=== PATIENT | female | born 1985 | race Caucasian/White ===

== ENCOUNTER 2018-08-27 00:44 | Emergency (ER) ==
[2018-08-27 00:51] VITALS: BP 125/82; TEMP 98.5; BMI 24.3
[2018-08-27 01:15] LABS: URINE PREGNANCY TEST NEGATIVE (NEGATIVE)
[2018-08-27] MEDS ORDERED: ZOFRAN ODT PO STA (01:39)
[2018-08-27] MEDS ORDERED: NORCO 7.5-325 PO STA (01:39)
--- NOTE | 2018-08-27 01:55 | CT ---
EXAM: CT abdomen pelvis without intravenous contrast 08/27/2018. Sagittal and coronal reformatted i mages obtained HISTORY: Flank pain. COMPARISON: None. FINDINGS: The liver shows no acute abnormality. Gallbladder has been removed. The adrenal glands and kidneys show no acute abnormality. Limited characterization of solid organ pa thology due to the lack of intravenous contrast. No kidney stones or hydronephrosis. The spleen and pancreas show no acute abnormality. No bowel obstruction. Unremarkable urinary bladder. No free air or free fluid. Appendix not visualized. No acute osseous abnormality. IMPRESSION: 1. Bibasilar atelectasis. 2. Status post cholecystectomy 3. No urinary or bowel obstruction. 4. No acute inflammatory process identified within the limitation of a noncontrast enhanced examinat ion.
--- NOTE | 2018-08-27 02:22 | ED.PDOC ---
General ED Provider: Dr. ANGIE HENDERSON-ER Chief Complaint: Urinary Problem Stated Complaint: my back hurts and im sure i have a uti Time Seen by Physician: 00:50 Mode of Arrival: Walk-In Information Source: Patient Exam Limitations: No limitations Nursing and Triage Documentation Reviewed and Agree: Yes Does patient meet sepsis criteria?: No System Inflammatory Response Syndrome: Not Applicable Sepsis Protocol: For patient's 13 years and over: Temp is 96.8 and below OR 101 and greater Pulse >90 BPM Resp >20/minute Acutely Altered Mental Status Are patient's symptoms suggestive of a new infection, such as: -Pneumonia -Skin, Soft Tissue -Endocarditis -UTI -Bone, Joint Infection -Implantable Device -Acute Abdominal Infection -Wound Infection -Meningitis -Blood Stream Catheter Infection -Unknown Complaint Exam - UTI Female Complaint/Exam Patient Complains of: Reports: Painful urination Symptoms Are: Still present Initial Severity: Mild Current Severity: Mild Location of Pain: Reports: Right, Left, Flank Associated Signs and Symptoms: Reports: Flank pain. Denies: Fever, Chills CVA Tenderness: Yes Suprapubic Tenderness: No Review of Systems - Review Of Systems Constitutional: Reports: No symptoms Eyes: Reports: No symptoms Ears, Nose, Mouth, Throat: Reports: No symptoms Respiratory: Reports: No symptoms Cardiac: Reports: No symptoms GI: Reports: No symptoms : Reports: Dysuria, Flank pain Musculoskeletal: Reports: Back pain Skin: Reports: No symptoms Neurological: Reports: No symptoms Endocrine: Reports: No symptoms Hematologic/Lymphatic: Reports: No symptoms All Other Systems: Reviewed and Negative Past Medical History - Past Medical History Previously Healthy: Yes Endocrine: Reports: Unknown Cardiovascular: Reports: Unknown Respiratory: Reports: Unknown Hematological: Reports: Unknown Gastrointestinal: Reports: Unknown Genitourinary: Reports: Unknown Neuro/Psych: Reports: Unknown Musculoskeletal: Reports: Unknown Cancer: Reports: Unknown Last Menstrual Period: current - Surgical History General Surgical History: Reports: Unknown - Family History Family History: Reports: Unknown - Social History Smoking Status: Never smoker Hx Substance Use: No Alcohol Screening: None - Immunizations Tetanus Shot up to Date: Yes Physical Exam - Physical Exam Appearance: Well-appearing Pain Distress: Mild Eyes: ERIC ENT: Ears normal, Nose normal, Oropharynx normal Neck: Supple Respiratory: Airway patent, Breath sounds clear, Breath sounds equal, Respirations nonlabored Cardiovascular: RRR, Pulses normal, No rub, No murmur GI/: Soft Musculoskeletal: Normal strength, ROM intact, No edema, No calf tenderness Skin: Warm Neurological: Sensation intact, Motor intact, Reflexes intact, Cranial nerves intact, Alert, Oriented Psychiatric: Affect appropriate Interpretation - Radiology Interpretation Radiology Interpretation By: Radiologist Radiology Results: Negative Exam Interpreted: CT Scan Critical Care Note - Critical Care Note Total Time (mins): 0 Course - Course Hematology/Chemistry: 08/27/18 01:05 08/27/18 01:05 Orders, Labs, Meds: Lab Review 08/27/18 08/27/18 08/27/18 01:00 01:00 01:05 WBC 7.97 RBC 3.82 L Hgb 12.2 Hct 36.1 L MCV 94.5 MCH 31.9 H MCHC 33.8 RDW Coeff of Rafael 11.4 L Plt Count 320 Immature Gran % (Auto) 1.1 Neut % (Auto) 48.7 Lymph % (Auto) 37.6 [place] % (Auto) 9.0 Eos % (Auto) 3.0 Baso % (Auto) 0.6 Immature Gran # (Auto) 0.1 Neut # (Auto) 3.9 Lymph # (Auto) 3.0 [place] # (Auto) 0.7 Eos # (Auto) 0.2 Baso # (Auto) 0.1 Sodium Potassium Chloride Carbon Dioxide Anion Gap BUN Creatinine Estimated GFR (MDRD) BUN/Creatinine Ratio Glucose Calcium Total Bilirubin AST ALT Alkaline Phosphatase Total Protein Albumin Globulin Albumin/Globulin Ratio Amylase Lipase Urine Color Yellow Urine Clarity Clear Urine pH 7.5 Ur Specific [place] 1.015 Urine Protein Negative Urine Glucose (UA) Negative Urine Ketones Negative Urine Blood Negative Urine Nitrite Negative Urine Bilirubin Negative Urine Urobilinogen 0.2 Ur Leukocyte Esterase 1+ Urine Microscopic WBC 2-5 Ur Squamous Epith Cells 0-2 Urine Bacteria 1+ Urine Test Negative 08/27/18 01:05 WBC RBC Hgb Hct MCV MCH MCHC RDW Coeff of Rafael Plt Count Immature Gran % (Auto) Neut % (Auto) Lymph % (Auto) [place] % (Auto) Eos % (Auto) Baso % (Auto) Immature Gran # (Auto) Neut # (Auto) Lymph # (Auto) [place] # (Auto) Eos # (Auto) Baso # (Auto) Sodium 136.1 Potassium 4.11 Chloride 104.2 Carbon Dioxide 28.2 Anion Gap 7.81 BUN 14.3 Creatinine 0.79 Estimated GFR (MDRD) 84.00 BUN/Creatinine Ratio 18.10 Glucose 83.4 Calcium 9.19 Total Bilirubin 0.27 AST 28.3 ALT 16.6 Alkaline Phosphatase 47.3 Total Protein 7.78 Albumin 4.64 Globulin 3.14 Albumin/Globulin Ratio 1.47 Amylase 83.4 Lipase 99.2 Urine Color Urine Clarity Urine pH Ur Specific [place] Urine Protein Urine Glucose (UA) Urine Ketones Urine Blood Urine Nitrite Urine Bilirubin Urine Urobilinogen Ur Leukocyte Esterase Urine Microscopic WBC Ur Squamous Epith Cells Urine Bacteria Urine Test Orders Category Date Time Status AMYLASE Stat LAB 08/27/18 01:05 Completed CBC W/ AUTO DIFF Stat LAB 08/27/18 01:05 Completed COMPREHENSIVE METABOLIC PANEL Stat LAB 08/27/18 01:05 Completed LIPASE Stat LAB 08/27/18 01:05 Completed URINALYSIS C & S IF INDICATED Stat LAB 08/27/18 01:00 Completed URINE CULTURE Stat LAB 08/27/18 01:20 Received URINE Stat LAB 08/27/18 01:00 Completed Hydrocodone Bit/Acetaminophen [[place] 7.5-325] MEDS 08/27/18 01:39 Discontinued 1 tab PO ONCE STA Ondansetron [Zofran Odt] MEDS 08/27/18 01:39 Discontinued 4 mg PO ONCE STA CT ABD/PEL WO RENAL STONE PROT Stat RADS 08/27/18 01:01 Completed Medications Discontinued Medications Generic Name Dose Route Start Last Admin Trade Name Freq PRN Reason Stop Dose Admin Hydrocodone Bitart/Acetaminophen 1 tab 08/27/18 01:39 08/27/18 01:48 [place] 7.5-325 PO 08/27/18 01:40 1 tab ONCE STA Administration Ondansetron HCl 4 mg 08/27/18 01:39 08/27/18 01:49 Zofran Odt PO 08/27/18 01:40 4 mg ONCE STA Administration Vital Signs: Temp Pulse Resp BP Pulse Ox 08/27/18 00:44 98.5 F 93 H 16 125/82 97 Departure - Departure Time of Disposition: 02:22 Disposition: HOME SELF-CARE Discharge Problem: Urinary tract infectious disease Instructions: Urinary Tract Infection in Women (ED) Condition: Good Pt referred to PMD for follow-up: Yes IPMP verified?: No Additional Instructions: cipro 500mg bid x 7 days--pyridium 200mg tid with food for pain #6--f/u with pcp --zofran 4mg q 4hrs prn nausea #4 Allergies/Adverse Reactions: Allergies diazepam [From Valium] Adverse Reaction (Verified 08/27/18 00:50) latex Adverse Reaction (Verified 08/27/18 00:50) Home Medications: Ambulatory Orders Cyclobenzaprine HCl [Flexeril] 10 mg PO TID 08/27/18 Gabapentin [Neurontin] 600 mg PO DAILY 08/27/18 Ibuprofen 800 mg PO PRN PRN 08/27/18 Loratadine [Claritin] 10 mg PO DAILY 08/27/18 Montelukast Sodium [Singulair] 10 mg PO DAILY 08/27/18 Disposition Discussed With: Patient, Family
== END 2018-08-27 02:35 | disposition home or self-care (01) ==
LOC: ED 00:44
DX: N39.0 Urinary tract infection, site not specified (principal)
CPT/HCPCS: 36415; 74176; 80053; 81001; 81025; 82150; 83690; 85025; 87086; 87186; 99283

== ENCOUNTER 2018-09-04 09:40 | Outpatient (CLI) | payer OTHER | END 2018-09-04 09:41 | disposition home or self-care (01) | LOC: RHC-LAB 09:40 | PROVIDERS: ATTEND Nurse Practitioner Family | DX: R05 Cough (principal); J02.9 Acute pharyngitis, unspecified | CPT/HCPCS: 87502; 87651 ==

== ENCOUNTER 2018-09-10 16:43 | Emergency (ER) ==
[2018-09-10 16:51] VITALS: BP 135/88; TEMP 99.9; BMI 27.1
[2018-09-10 17:58] LABS: URINE PREGNANCY TEST NEGATIVE (NEGATIVE)
--- NOTE | 2018-09-10 18:20 | ED.PDOC ---
General ED Provider: Dr. ISATU [place] Chief Complaint: Respiratory Complaint Stated Complaint: FLU LIKE SYMPTOMS NOT IMPROVED AFTER ANTIBIOTIC TREATMENT Time Seen by Physician: 17:00 (SEEN WITH ILIANA AND NURSE AT ALL TIMES HAS HAD A FULL COURSE OF AUGMENTIN) Mode of Arrival: Walk-In Information Source: Patient Exam Limitations: No limitations Nursing and Triage Documentation Reviewed and Agree: Yes Does patient meet sepsis criteria?: No System Inflammatory Response Syndrome: Not Applicable Sepsis Protocol: For patient's 13 years and over: Temp is 96.8 and below OR 101 and greater Pulse >90 BPM Resp >20/minute Acutely Altered Mental Status Are patient's symptoms suggestive of a new infection, such as: -Pneumonia -Skin, Soft Tissue -Endocarditis -UTI -Bone, Joint Infection -Implantable Device -Acute Abdominal Infection -Wound Infection -Meningitis -Blood Stream Catheter Infection -Unknown Respiratory Complaint Exam - Respiratory Complaint/Exam Onset/Duration: 10 DAYS Symptoms Are: Still present Timing: Intermittent Initial Severity: Mild Current Severity: None Location: Nose, Throat, Chest Character: Reports: Non-productive cough, Dry cough Aggravating: Reports: URI Alleviating: Reports: None Associated Signs and Symptoms: Reports: Chills, URI, Nasal congestion. Denies: Rapid breathing, Dyspnea, Fever, Chest pain, Pleuritic chest pain, Wheezing, Hemoptysis, Dizziness, Calf pain, Calf swelling, Edema, Hoarseness, Sinus discomfort, Vomiting, Sore throat, Weight loss, Decreased oral intake, Increased thirst, Increased appetite, Increased urination Related History: Reports: Similar episode (DOES NOT SMOKE ) History of Healthcare-Acquired Pneumonia: No Related Surgical History: Reports: None Pulmonary Embolism Risk Factors: None Cardiac Risk Factors: Reports: None Pseudomonas Risk Factors: Reports: None Tuberculosis Risk Factors: Reports: None Status Asthmaticus Risk Factors: Reports: None Home Oxygen Use: No Recent Stress Test: No Recent Echo/LV Function: No Current Antibiotic Use: No Current Asthma Medication Use: No Respiratory Distress: None Inadequate Respiratory Effort: No Dysphagia Present: No Stridor Present: No JVD Present: No Accessory Muscle Use: No Retractions: Not Present Diminished Breath Sounds: No Sinus Tenderness: None Grunting Respirations: No Kussmaul Respirations: No Differential Diagnoses: Bronchitis, Influenza Review of Systems - Review Of Systems Constitutional: Reports: Chills, Malaise Eyes: Reports: No symptoms Ears, Nose, Mouth, Throat: Reports: No symptoms Respiratory: Reports: Cough Cardiac: Reports: No symptoms GI: Reports: No symptoms : Reports: No symptoms Musculoskeletal: Reports: No symptoms Skin: Reports: No symptoms Neurological: Reports: No symptoms Endocrine: Reports: No symptoms Hematologic/Lymphatic: Reports: No symptoms All Other Systems: Reviewed and Negative Past Medical History - Past Medical History Previously Healthy: Yes Endocrine: Reports: Unknown Cardiovascular: Reports: Unknown Respiratory: Reports: Unknown Hematological: Reports: Unknown Gastrointestinal: Reports: Unknown Genitourinary: Reports: Unknown Neuro/Psych: Reports: Unknown Musculoskeletal: Reports: Unknown Cancer: Reports: Unknown Last Menstrual Period: just ended - Surgical History General Surgical History: Reports: Unknown - Family History Family History: Reports: Unknown - Social History Smoking Status: Never smoker Hx Substance Use: No Alcohol Screening: None Physical Exam - Physical Exam Appearance: Well-appearing, No pain distress, Well-nourished Eyes: ERIC, EOMI, Conjunctiva clear ENT: Ears normal, Nose normal, Oropharynx normal Respiratory: Rhonchi Cardiovascular: RRR, Pulses normal, No rub, No murmur GI/: Soft, Nontender, No masses, Bowel sounds normal, No Organomegaly Musculoskeletal: Normal strength, ROM intact, No edema, No calf tenderness Skin: Warm, Dry, Normal color Neurological: Sensation intact, Motor intact, Reflexes intact, Cranial nerves intact, Alert, Oriented Psychiatric: Affect appropriate, Mood appropriate Critical Care Note - Critical Care Note Total Time (mins): 0 Course - Course Hematology/Chemistry: 09/10/18 17:26 09/10/18 17:26 Orders, Labs, Meds: Lab Review 09/10/18 09/10/18 09/10/18 17:26 17:26 17:46 WBC 7.12 RBC 3.69 L Hgb 11.8 L Hct 34.1 L MCV 92.4 MCH 32.0 H MCHC 34.6 RDW Coeff of Rafael 11.5 L Plt Count 287 Immature Gran % (Auto) 0.1 Neut % (Auto) 63.9 Lymph % (Auto) 25.6 [place] % (Auto) 8.0 Eos % (Auto) 2.1 Baso % (Auto) 0.3 Immature Gran # (Auto) 0.0 Neut # (Auto) 4.6 Lymph # (Auto) 1.8 [place] # (Auto) 0.6 Eos # (Auto) 0.2 Baso # (Auto) 0.0 Sodium 141.1 Potassium 3.72 Chloride 107.9 H Carbon Dioxide 24.5 Anion Gap 12.42 BUN 12.5 Creatinine 0.57 L Estimated GFR (MDRD) 121.00 BUN/Creatinine Ratio 21.92 Glucose 95.8 Calcium 8.99 Total Bilirubin 0.34 AST 32.1 ALT 16.8 Alkaline Phosphatase 53.9 Total Protein 7.26 Albumin 4.32 Globulin 2.94 Albumin/Globulin Ratio 1.46 Urine Test Influ A Molecular Assay Negative by naat Influ B Molecular Assay Negative by naat RSV Antigen 09/10/18 09/10/18 17:46 17:46 WBC RBC Hgb Hct MCV MCH MCHC RDW Coeff of Rafael Plt Count Immature Gran % (Auto) Neut % (Auto) Lymph % (Auto) [place] % (Auto) Eos % (Auto) Baso % (Auto) Immature Gran # (Auto) Neut # (Auto) Lymph # (Auto) [place] # (Auto) Eos # (Auto) Baso # (Auto) Sodium Potassium Chloride Carbon Dioxide Anion Gap BUN Creatinine Estimated GFR (MDRD) BUN/Creatinine Ratio Glucose Calcium Total Bilirubin AST ALT Alkaline Phosphatase Total Protein Albumin Globulin Albumin/Globulin Ratio Urine Test Negative Influ A Molecular Assay Influ B Molecular Assay RSV Antigen Negative by naat Orders Category Date Time Status CBC W/ AUTO DIFF Stat LAB 09/10/18 17:26 Completed COMPREHENSIVE METABOLIC PANEL Stat LAB 09/10/18 17:26 Completed FLU A/B MOLECULAR Stat LAB 09/10/18 17:46 Completed MOLECULAR GROUP A STREP Stat LAB 09/10/18 17:46 Completed RSV Stat LAB 09/10/18 17:46 Completed URINE Stat LAB 09/10/18 17:46 Completed CHEST, 2 VIEWS PA & LAT Stat RADS 09/10/18 17:16 Taken Vital Signs: Temp Pulse Resp BP Pulse Ox 09/10/18 16:43 99.9 F H 91 H 20 135/88 96 Departure - Departure Time of Disposition: 18:22 Disposition: HOME SELF-CARE Discharge Problem: Viral syndrome Anemia Qualifiers: Anemia type: unspecified type Qualified Code(s): D64.9 - Anemia, unspecified Instructions: Viral Syndrome (ED), Anemia (ED) Condition: Good Pt referred to PMD for follow-up: Yes IPMP verified?: No Additional Instructions: Please call your Family Physician as soon as possible to schedule a follow-up appointment. YOUR ANEMIC , PLEASE SEE YOUR DOCTOR TO SEE WHY SOMETIMES IT CAN BE A S SIMPLE BEING LOW ON IRON DO NOT TAKE ANY IRON TILL YOUR MD TELLS YOU TO DO SO. ALL FLU TTEST AND STREP HAS BEEN NEGATIVE Allergies/Adverse Reactions: Allergies albuterol Allergy (Severe, Verified 09/10/18 16:53) Difficulty breathing Patient will notify drugstore diazepam [From Valium] Adverse Reaction (Verified 09/10/18 16:53) latex Adverse Reaction (Verified 09/10/18 16:53) Home Medications: Ambulatory Orders Cyclobenzaprine HCl [Flexeril] 10 mg PO TID 08/27/18 Gabapentin [Neurontin] 600 mg PO DAILY 08/27/18 Ibuprofen 800 mg PO PRN PRN 08/27/18 Loratadine [Claritin] 10 mg PO DAILY 08/27/18 Montelukast Sodium [Singulair] 10 mg PO DAILY 08/27/18 Mometasone/Formoterol [Dulera 200 Mcg/5 Mcg Inhaler] 8.8 gm IH BID 09/04/18 Tiotropium [place] [Spiriva] 18 mcg IH DAILY 09/04/18 Disposition Discussed With: Patient
--- NOTE | 2018-09-10 18:31 | DI ---
EXAM: Two views of the chest. History: Cough. Findings: Heart size is within normal limits. No focal consolidation. No appreciable pleural fluid and no pneumothorax. No acute osseous abnormalities. Impression: No acute cardiopulmonary process
== END 2018-09-10 18:35 | disposition home or self-care (01) ==
LOC: ED 16:43
DX: B34.9 Viral infection, unspecified (principal); D64.9 Anemia, unspecified
CPT/HCPCS: 36415; 80053; 81025; 85025; 87502; 87651; 87801; 99283

== ENCOUNTER 2018-10-14 16:09 | Outpatient (CLI) | END 2018-10-14 16:10 | disposition home or self-care (01) | LOC: RHC-LAB 16:09 → FCC-LAB 16:10 | PROVIDERS: ATTEND Family Medicine | DX: N89.8 Other specified noninflammatory disorders of vagina (principal) | CPT/HCPCS: 87086 ==

== ENCOUNTER 2018-12-15 16:08 | Outpatient (CLI) | END 2018-12-15 16:09 | disposition home or self-care (01) | LOC: RHC-LAB 16:08 | PROVIDERS: ATTEND Nurse Practitioner Family | DX: J02.9 Acute pharyngitis, unspecified (principal) | CPT/HCPCS: 87651 ==

== ENCOUNTER 2019-01-11 01:05 | Emergency (ER) | payer OTHER ==
--- NOTE | 2019-01-11 01:15 | ED.PDOC ---
General ED Provider: Dr. IRIS MANCIA Chief Complaint: Back Pain Stated Complaint: 42 y old female complaining for a lower back pain.Has PMHx of renal stones and UTI.Bilateral CVA tenderness. Time Seen by Physician: 01:20 Mode of Arrival: Walk-In Exam Limitations: No limitations Nursing and Triage Documentation Reviewed and Agree: Yes Does patient meet sepsis criteria?: No System Inflammatory Response Syndrome: Not Applicable Sepsis Protocol: For patient's 13 years and over: Temp is 96.8 and below OR 101 and greater Pulse >90 BPM Resp >20/minute Acutely Altered Mental Status Are patient's symptoms suggestive of a new infection, such as: -Pneumonia -Skin, Soft Tissue -Endocarditis -UTI -Bone, Joint Infection -Implantable Device -Acute Abdominal Infection -Wound Infection -Meningitis -Blood Stream Catheter Infection -Unknown Musculoskeletal Complaint Exam - Back Pain Complaint/Exam Onset/Duration: today but chronic and recurrent Symptoms Are: Still present Timing: Intermittent Episodes Lasting: Hours Initial Severity: Mild Current Severity: Mild Location: Reports: Discrete Character: Reports: Aching Aggravating: Reports: Movements, Lifting, Bending Alleviating: Reports: Rest, Position Related History: Reports: Similar episode TAD Risk Factors: Reports: None AAA Risk Factors: Reports: None Cauda Equina Risk Factors: Reports: None Epidural Abcess Risk Factors: Reports: None Focal Tenderness: No Paraspinal Muscle Tenderness: Yes Paraspinal Muscle Spasm: Yes Scoliosis: No Lordosis: No Kyphosis: No Hip Motion Testing Pain: Right Negative, Left Negative Focal Weakness: Present: None Focal Sensory Loss: Present: None Gait: Present: Normal Differential Diagnoses: Arthritis, Renal Colic, Strain, Sprain - Knee Pain Complaint/Exam Able to Bear Weight: Yes Review of Systems - Review Of Systems Constitutional: Reports: No symptoms Eyes: Reports: No symptoms Ears, Nose, Mouth, Throat: Reports: No symptoms Respiratory: Reports: No symptoms Cardiac: Reports: No symptoms GI: Reports: No symptoms : Reports: No symptoms Musculoskeletal: Reports: Back pain Skin: Reports: No symptoms Neurological: Reports: No symptoms Endocrine: Reports: No symptoms Hematologic/Lymphatic: Reports: No symptoms All Other Systems: Reviewed and Negative Past Medical History - Past Medical History Previously Healthy: Yes Endocrine: Reports: Unknown Cardiovascular: Reports: Unknown Respiratory: Reports: Unknown Hematological: Reports: Unknown Gastrointestinal: Reports: Unknown Genitourinary: Reports: Unknown Neuro/Psych: Reports: Unknown Musculoskeletal: Reports: Unknown Cancer: Reports: Unknown - Surgical History General Surgical History: Reports: Unknown - Family History Family History: Reports: Unknown - Social History Smoking Status: Never smoker Hx Substance Use: No Alcohol Screening: None Physical Exam - Physical Exam Appearance: Well-appearing Ill-appearing: None Pain Distress: Mild Eyes: ERIC, EOMI, Conjunctiva clear ENT: Ears normal, Nose normal, Oropharynx normal Neck: Supple Respiratory: Airway patent, Breath sounds clear, Breath sounds equal Cardiovascular: RRR, Pulses normal, No rub, No murmur GI/: Soft, Nontender Musculoskeletal: Normal strength, ROM intact, No edema Skin: Warm, Dry Neurological: Sensation intact, Motor intact, Cranial nerves intact, Alert, Oriented Psychiatric: Affect appropriate Critical Care Note - Critical Care Note Total Time (mins): 0 Course - Course Hematology/Chemistry: 01/11/19 01:30 Orders, Labs, Meds: Lab Review 01/11/19 01/11/19 01:30 01:55 WBC 4.65 RBC 3.68 L Hgb 12.2 Hct 35.3 L MCV 95.9 MCH 33.2 H MCHC 34.6 RDW Coeff of Rafael 11.6 Plt Count 222 Neutrophils % (Manual) 39.0 L Lymphocytes % (Manual) 48.0 Monocytes % (Manual) 8.0 Eosinophils % (Manual) 1.0 Promyelocytes % 1.0 H Reactive Lymphocytes 3.0 Anisocytosis Not present Urine Color [place] Urine Clarity Clear Urine pH 5.5 Ur Specific [place] 1.015 Urine Protein 1+ Urine Glucose (UA) Trace Urine Ketones Trace Urine Blood Negative Urine Nitrite Positive Urine Bilirubin 1+ Urine Urobilinogen 4.0 Ur Leukocyte Esterase 3+ Urine Microscopic RBC 0-2 Urine Microscopic WBC 2-5 Ur Squamous Epith Cells 5-10 Urine Bacteria Trace Hyaline Casts 0-2 Urine Mucus Trace Orders Category Date Time Status NPO REMINDER: IMAGING ONCE CARE 01/11/19 01:45 Completed IV [ED IV/MEDIPORT/POWERPORT] .ONCE EMERGENCY 01/11/19 01:43 Active CBC W/ AUTO DIFF Stat LAB 01/11/19 01:30 Completed MANUAL DIFFERENTIAL Stat LAB 01/11/19 01:30 Completed URINALYSIS C & S IF INDICATED Stat LAB 01/11/19 01:55 Completed 0.9 % Sodium Chloride [Saline Flush] MEDS 01/11/19 01:43 Ordered 1 syr IVF PRN PRN Ceftriaxone Sodium [Rocephin] MEDS 01/11/19 02:35 Discontinued 1 gm .ROUTE .STK-MED ONE Ceftriaxone Sodium [Rocephin] 1 gm MEDS 01/11/19 02:29 Active 0.9 % Sodium Chloride [Sodium Chloride] 50 ml IV ONCE Ketorolac Tromethamine [Toradol] MEDS 01/11/19 01:42 Discontinued 60 mg IM ONCE STA Ondansetron HCl/Pf [Zofran 4 mg/2 ml] MEDS 01/11/19 02:27 Discontinued 4 mg IVP ONCE STA Sodium Chloride 0.9% [Sodium Chloride] 1,000 ml MEDS 01/11/19 01:[address] ABD/PEL WO RENAL STONE PROT Stat RADS 01/11/19 01:48 Completed Medications Generic Name Dose Route Start Last Admin Trade Name Freq PRN Reason Stop Dose Admin Ceftriaxone Sodium 1 gm/ 50 mls @ 75 mls/hr 01/11/19 02:29 01/11/19 02:38 Sodium Chloride IV 01/11/19 03:08 75 mls/hr ONCE STA Administration Sodium Chloride 1 syr 01/11/19 01:43 01/11/19 02:24 Saline Flush IVF 1 syr PRN PRN Administration To flush IV Discontinued Medications Generic Name Dose Route Start Last Admin Trade Name Freq PRN Reason Stop Dose Admin Sodium Chloride 1,000 mls @ 1,000 mls/hr 01/11/19 01:44 01/11/19 02:24 Sodium Chloride IV 01/11/19 02:43 1,000 mls/hr BOLUS STA Administration Ketorolac Tromethamine 60 mg 01/11/19 01:42 01/11/19 02:02 Toradol IM 01/11/19 01:43 60 mg ONCE STA Administration Ondansetron HCl 4 mg 01/11/19 02:27 01/11/19 02:33 Zofran 4 Mg/2 Ml IVP 01/11/19 02:28 4 mg ONCE STA Administration Vital Signs: Temp Pulse Resp BP Pulse Ox 01/11/19 01:08 98.4 F 70 16 118/75 96 Departure - Departure Time of Disposition: 02:56 Disposition: HOME SELF-CARE Discharge Problem: Back pain, UTI (urinary tract infection) Instructions: Low Back Strain (ED), Urinary Tract Infection in Women (ED) Condition: Good Pt referred to PMD for follow-up: Yes IPMP verified?: No Additional Instructions: Ciprofloxacin 500mg bid x 10 days.Than repeat urinalysis and if needed a course of Ciprofloxacin as above x 1. Allergies/Adverse Reactions: Allergies albuterol Allergy (Severe, Verified 09/10/18 16:53) Difficulty breathing Patient will notify drugstore diazepam [From Valium] Adverse Reaction (Verified 09/10/18 16:53) latex Adverse Reaction (Verified 09/10/18 16:53) Home Medications: Ambulatory Orders Ibuprofen 800 mg PO PRN PRN 08/27/18 Loratadine [Claritin] 10 mg PO DAILY 08/27/18 Montelukast Sodium [Singulair] 10 mg PO DAILY 08/27/18 Tiotropium [place] [Spiriva] 18 mcg IH DAILY 09/04/18 Disposition Discussed With: Patient, Family
[2019-01-11 01:18] VITALS: BP 118/75; TEMP 98.4; BMI 25.8
[2019-01-11] MEDS ORDERED: TORADOL IM STA (01:42)
[2019-01-11] MEDS ORDERED: SODIUM CHLORIDE 1,000 ML IV STA (01:44)
[2019-01-11] MEDS ORDERED: ZOFRAN 4 MG/2 ML IVP STA (02:27)
[2019-01-11] MEDS ORDERED: ROCEPHIN 1 GM in SODIUM CHLORIDE 50 ML IV STA (02:29)
--- NOTE | 2019-01-11 02:34 | CT ---
EXAM: CT scan abdomen pelvis without contrast HISTORY: Abdominal and back pain COMPARISON: CT scan abdomen pelvis 01/25/2019 FINDINGS: Contiguous axial image the abdomen pelvis without contrast utilizing 3-mm collimation. Sa gittal and coronal reconstructions were imaged and reviewed.. The visualized lung bases are clear. There has been prior cholecystectomy. The liver, pancreas, spleen and adrenal glands have normal une nhanced CT appearance.. There is a small cyst lower pole right kidney.. There is left-sided extrare nal pelvis The appendix was not visualized. There is no free fluid or inflammatory changes. There are bilateral ensure devices.. The bladder is small volumed limiting evaluation. There is a small f at-containing umbilical hernia. IMPRESSION: Cholecystectomy. No acute intra-abdominal findings
[2019-01-11] MEDS ORDERED: ROCEPHIN ONE (02:35)
[2019-01-11] MEDS ORDERED: ULTRAM PO STA (03:11)
== END 2019-01-11 03:48 | disposition home or self-care (01) ==
LOC: ED 01:05
DX: N39.0 Urinary tract infection, site not specified (principal); Z87.440 Personal history of urinary (tract) infections; Z87.442 Personal history of urinary calculi
CPT/HCPCS: 36415; 74176; 81001; 85007; 85025; 96361; 96365; 96372; 96375; 99283

== ENCOUNTER 2019-04-17 11:49 | Outpatient (CLI) ==
[2019-01-17 16:05] VITALS: BMI 25.7
== END 2019-04-17 11:50 | disposition home or self-care (01) ==
LOC: RHC-LAB 11:49 → FCC-LAB 11:50
PROVIDERS: ATTEND Family Medicine
DX: J02.9 Acute pharyngitis, unspecified (principal)
CPT/HCPCS: 87651